=== PATIENT | female | born 1985 | race Two or more races ===

== ENCOUNTER 2021-05-20 13:28 | Outpatient (REF) | payer OTHER, SELFPAY | END 2021-05-20 13:29 | disposition home or self-care (01) | LOC: HO.LAB 13:28 | PROVIDERS: Visit Provider Internal Medicine | DX: Z20.822 Contact with and (suspected) exposure to COVID-19 (principal) | CPT/HCPCS: C9803; U0003; U0005 ==

== ENCOUNTER 2021-05-31 14:10 | Outpatient (REF) | payer OTHER, SELFPAY | END 2021-05-31 14:11 | disposition home or self-care (01) | LOC: HO.LAB 14:10 | PROVIDERS: Visit Provider Internal Medicine | DX: Z20.822 Contact with and (suspected) exposure to COVID-19 (principal) | CPT/HCPCS: C9803; U0003; U0005 ==

== ENCOUNTER 2021-08-25 09:34 | Emergency (ER) | payer OTHER, SELFPAY ==
--- NOTE | ~2021-08-25 | CT_ITS ---
EXAMINATION: CT HEAD WITHOUT CONTRAST CLINICAL INFORMATION: Left-sided paresthesia for one month. COMPARISON: None. TECHNIQUE: Contiguous axial imaging was performed from the skull base to vertex without intravenous contrast. This CT examination was performed using dose optimization techniques as appropriate, variously including the following: * Automated exposure control * Adjustment of mA and/or kV according to patient size (this includes techniques or standardized protocols for targeted exams where dose is matched to indication/reason for exam; i.e. extremities or head) Use of iterative reconstruction technique DLP: 682 mGy-cm. FINDINGS: There is no evidence of acute intracranial hemorrhage or territorial infarction. No abnormal mass effect or midline shift is seen. Boswell to white matter differentiation is well preserved. No extra-axial fluid collections are identified. No hydrocephalus. No significant volume loss. There is no abnormal attenuation within the brain parenchyma. The osseous structures and soft tissues are normal. The mastoid air cells and visualized portions of the paranasal sinuses are well aerated. CT/CT head/brain wo con IMPRESSION: No acute intracranial pathology.
--- NOTE | ~2021-08-25 | CT_ITS ---
EXAMINATION: CT ABDOMEN AND PELVIS WITHOUT CONTRAST CLINICAL INFORMATION: Left lower quadrant pain. COMPARISON: None TECHNIQUE: Multidetector volumetric imaging was performed from the superior aspect of the liver through the pubic symphysis. Sagittal and coronal reformatted images were obtained on the technologist's workstation. This CT examination was performed using dose optimization techniques as appropriate, variously including the following: *Automated exposure control *Adjustment of mA and/or kV according to patient size (this includes techniques or standardized protocols for targeted exams where dose is matched to indication/reason for exam; i.e. extremities or head) *Use of iterative reconstruction technique DLP: 555 mGy-cm FINDINGS: LUNG BASES: The visualized lung bases are unremarkable. LIVER, GALLBLADDER, AND BILIARY TREE: The liver is normal in size, shape, and attenuation. No focal hepatic lesion or biliary ductal dilatation is present. Along the anterior aspect of the left lobe of the liver there is a cystic structure measuring 2.9 x 1 cm. This appears to be external to the liver and results in deformity of the Contour. The gallbladder is unremarkable with no evidence of radiopaque gallstones, gallbladder wall thickening, or obvious pericholecystic inflammatory changes. PANCREAS: Unremarkable. SPLEEN: Unremarkable. ADRENAL GLANDS: Unremarkable. KIDNEYS AND URETERS: The kidneys are normal in size, shape, and attenuation. No hydronephrosis or hydroureter. 0.2 cm right lower pole renal calculus noted which is 7 cm from the posterior axillary line. BLADDER: Unremarkable. GASTROINTESTINAL TRACT: The stomach is unremarkable. Normal caliber small bowel. No obstruction. No colonic wall thickening or inflammatory change. No free air or free fluid. Normal appendix. ABDOMINAL WALL: No significant hernia is appreciated. LYMPH NODES: Normal. VASCULAR: Unremarkable. PELVIC VISCERA: Retroverted uterus. No adnexal mass. OSSEOUS STRUCTURES: No acute or suspicious osseous abnormality. CT/CT abdomen pelvis wo con IMPRESSION: No acute findings in the abdomen or pelvis. No inflammatory change. Nonspecific cystic structure exophytic to the anterior aspect of the left lobe of the liver. This is of uncertain clinical significance. Nonobstructing right lower pole tiny renal calculus. Fleischner guidelines were followed.
[2021-08-25 10:38] VITALS: BP 116/88; PULSE 84; RESP 16; TEMP 36.3; O2SAT 100; BMI 29.5
[2021-08-25 12:28] LABS: MANUAL DIFF FLAG NO
[2021-08-25 12:30] LABS: Basophils Absolute Auto 0.1 X10*3/uL (0.0-0.2); Basophils Percent Auto 0.7 % (0-2); Eosinophils Absolute Auto 0.1 X10*3/uL (0.0-0.4); Eosinophils Percent Auto 1.1 % (0-4); Hematocrit 42.7 % (37.0-47.0); Hemoglobin 14.5 g/dl (12.0-16.0); Imm Gran Abs Auto 0.04 X10*3/uL (0.00-0.03); Imm Gran Pct Auto 0.4 % (0.0-0.4); Lymphocytes Absolute Auto 2.6 X10*3/uL (1.2-4.9); Lymphocytes Percent Auto 25.8 % (20-40); Mean Corpuscular Hemoglobin 34.2 pg (27.0-33.0); Mean Corpuscular Volume 100.7 fL (80.0-98.0); Mean Platelet Volume 8.2 fL (9.4-12.3); Monocytes Absolute Auto 0.7 X10*3/uL (0.1-1.2); Monocytes Percent Auto 6.9 % (2-11); Neutrophils Absolute Auto 6.6 x10*3/uL (2.0-8.3); Neutrophils Percent Auto 65.1 % (45-73); Platelet Count 275 X10*3/uL (160-400); Red Blood Count 4.24 X10*6/uL (4.20-5.50); Red Cell Distribution Width 12.2 % (11.0-16.0); White Blood Count 10.1 X10*3/uL (4.8-10.8)
[2021-08-25 12:33] LABS: UPreg QC Valid YES; Urine Pregnancy NEGATIVE (NEGATIVE)
[2021-08-25 12:38] LABS: Appearance Urine HAZY; Color Urine YELLOW; Glucose Urine UA NEG (NEG); Leukocyte Esterase Urine NEG (NEG); Nitrite Urine NEG (NEG); Urine Blood NEG (NEG); Urine Ketones NEG (NEG); Urine Protein NEG (NEG-TRACE)
[2021-08-25 12:47] LABS: Anion Gap 13 (12-20); Blood Urea Nitrogen 14 mg/dL (9-16); Calcium 9.1 mg/dL (8.4-10.2); Carbon Dioxide 28 mmol/L (22-29); Chloride 105 mmol/L (96-108); Creatinine Clr Calc Pharmacy 93.2; Estimated Glomerular Filt Rate > 60; Glucose Random 82 mg/dL (60-115); Potassium 3.4 mmol/L (3.3-5.1); Sodium 143 mmol/L (135-145)
--- NOTE | 2021-08-25 13:01 | ED.ABDPAIN ---
HPI - Abdominal Pain General Chief Complaint: Abdominal Pain Stated Complaint: Numbness & tingling in legs/l arm Time Seen by Provider: 08/25/21 13:00 Source: patient Mode of arrival: ambulatory Limitations: no limitations History of Present Illness MD elicited complaint: abdominal pain and other (parasthesias L side 1 month now to LLE and RLE) Pertinent past history: none Onset (ago): month(s) (1) Pain Consistency: constant Location: LLQ and other (tingling from L side) Severity: moderate Quality: aching Radiation: none Migration to: no migration Exacerbating factors: nothing Relieving factors: nothing Associated symptoms: nausea Related Data Allergies Allergy/AdvReac Type Severity Reaction Status Date / Time No Known Allergies Allergy Verified 08/25/21 10:37 Review of Systems Review of Systems Constitutional : No Weight loss, No Fever, No Chills ENT/Mouth : No sore throat, No Rhinorrhea Eyes: No Swelling, No Redness Cardiovascular : No Chest Pain, No SOB, NoEdema Respiratory : No Cough, No Sputum, No Wheezing Gastrointestinal : Positive Nausea, no Vomiting, no Diarrhea, positive abdominal Pain, No Hematochezia, No Melena Genitourinary : No Dysuria, No Urinary Frequency, No Hematuria, No Urgency Musculoskeletal : No joint pain, No Myalgias, No Joint Swelling Skin : No Skin Lesions, No rash Neuro : No Weakness, pos Numbness, No Dizziness, No Headache Psych : No Anxiety/Panic, No Depression Heme/Lymph: No Bruising, No Lymphadenopathy Endocrine : No Polyuria, No Polydipsia All other systems reviewed and are negative. Physical Exam Vital Signs: Vital Signs: Last Vital Signs Temp 97.3 F 08/25/21 10:38 Pulse 84 08/25/21 10:38 Resp 16 08/25/21 10:38 BP 116/88 08/25/21 10:38 Pulse Ox 100 08/25/21 10:38 BMI result Body Mass Index 29.5 Appearance: Alert. Oriented X3. No acute distress. Eyes: Pupils equal, round and reactive to light. ENT: Pharynx normal. Neck: Normal inspection. Neck supple. CVS: Normal heart rate and rhythm. Pulses normal. Respiratory: No respiratory distress. Breath sounds normal. Abdomen: Soft and mild LLQ ttp no rebound or guarding Skin: Skin warm and dry. Normal skin color. Normal skin turgor. Extremities: No lower extremity edema. No calf ttp Neuro: Oriented X 3. No motor deficit. No sensory deficit. reports L side feels tingly but she can feel it Course Course Course Narrative: no acute findings, parasthesias x 1 month doubt GBS possible MS though non specific will have her follow up with her PCP/Neurology MDM - Abdominal Pain MDM Narrative Medical decision making narrative: 35 yo female with no sig PMH hx here with c/o L sided parasthesias for 1 month along with it has now traveled to her legs no fam hx of MS - she also notes LLQ pain and nausea since last night - labs, UA, CT scan for diverticulitis, CT head for any lesions - dispo per results and findings. Lab Data Result diagrams: 08/25/21 12:21 08/25/21 12:21 Labs: Lab Results 08/25/21 08/25/21 08/25/21 Range/Units 12:21 12:21 12:21 WBC 10.1 (4.8-10.8) X10*3/uL RBC 4.24 (4.20-5.50) X10*6/uL Hgb 14.5 (12.0-16.0) g/dl Hct 42.7 (37.0-47.0) % MCV 100.7 H (80.0-98.0) fL MCH 34.2 H (27.0-33.0) pg MCHC 34.0 (31.0-35.0) g/dl RDW 12.2 (11.0-16.0) % Plt Count 275 (160-400) X10*3/uL MPV 8.2 L (9.4-12.3) fL Immature Gran % (Auto) 0.4 (0.0-0.4) % Neut % (Auto) 65.1 (45-73) % Lymph % (Auto) 25.8 (20-40) % [place] % (Auto) 6.9 (2-11) % Eos % (Auto) 1.1 (0-4) % Baso % (Auto) 0.7 (0-2) % Lymph # (Auto) 2.6 (1.2-4.9) X10*3/uL [place] # (Auto) 0.7 (0.1-1.2) X10*3/uL Eos # (Auto) 0.1 (0.0-0.4) X10*3/uL Baso # (Auto) 0.1 (0.0-0.2) X10*3/uL Abs Immat Gran (auto) 0.04 H (0.00-0.03) X10*3/uL Absolute Neuts (auto) 6.6 (2.0-8.3) x10*3/uL Absolute Nucleated RBC 0.000 (0.0-0.012) X10*3/uL Nucleated RBC % (auto) 0.0 (0.0-0.2) /100WBC Sodium 143 (135-145) mmol/L Potassium 3.4 (3.3-5.1) mmol/L Chloride 105 (96-108) mmol/L Carbon Dioxide 28 (22-29) mmol/L Anion Gap 13 (12-20) BUN 14 (9-16) mg/dL Creatinine 0.69 (0.5-1.4) mg/dL Estim Creat Clear Calc 93.2 Estimated GFR > 60 Random Glucose 82 (60-115) mg/dL Calcium 9.1 (8.4-10.2) mg/dL Total Bilirubin 1.0 (0.0-1.0) mg/dL Direct Bilirubin 0.5 (0.0-0.5) mg/dL AST 20 (5-31) U/L ALT 20 (0-31) U/L Alkaline Phosphatase 56 (39-117) U/L Total Protein 6.8 (6.5-8.0) g/dL Albumin 4.3 (3.5-5.0) g/dL Lipase 74 (8-78) U/L Urine Color YELLOW Urine Appearance HAZY Urine pH 6.0 (5.0-8.0) Ur Specific [place] 1.020 (1.005-1.025) Urine Protein NEG (NEG-TRACE) MG/DL Urine Glucose (UA) NEG (NEG) MG/DL Urine Ketones NEG (NEG) MG/DL Urine Blood NEG (NEG) Urine Nitrite NEG (NEG) Ur Leukocyte Esterase NEG (NEG) Urine Test (NEGATIVE) 08/25/21 Range/Units 12:21 WBC (4.8-10.8) X10*3/uL RBC (4.20-5.50) X10*6/uL Hgb (12.0-16.0) g/dl Hct (37.0-47.0) % MCV (80.0-98.0) fL MCH (27.0-33.0) pg MCHC (31.0-35.0) g/dl RDW (11.0-16.0) % Plt Count (160-400) X10*3/uL MPV (9.4-12.3) fL Immature Gran % (Auto) (0.0-0.4) % Neut % (Auto) (45-73) % Lymph % (Auto) (20-40) % [place] % (Auto) (2-11) % Eos % (Auto) (0-4) % Baso % (Auto) (0-2) % Lymph # (Auto) (1.2-4.9) X10*3/uL [place] # (Auto) (0.1-1.2) X10*3/uL Eos # (Auto) (0.0-0.4) X10*3/uL Baso # (Auto) (0.0-0.2) X10*3/uL Abs Immat Gran (auto) (0.00-0.03) X10*3/uL Absolute Neuts (auto) (2.0-8.3) x10*3/uL Absolute Nucleated RBC (0.0-0.012) X10*3/uL Nucleated RBC % (auto) (0.0-0.2) /100WBC Sodium (135-145) mmol/L Potassium (3.3-5.1) mmol/L Chloride (96-108) mmol/L Carbon Dioxide (22-29) mmol/L Anion Gap (12-20) BUN (9-16) mg/dL Creatinine (0.5-1.4) mg/dL Estim Creat Clear Calc Estimated GFR Random Glucose (60-115) mg/dL Calcium (8.4-10.2) mg/dL Total Bilirubin (0.0-1.0) mg/dL Direct Bilirubin (0.0-0.5) mg/dL AST (5-31) U/L ALT (0-31) U/L Alkaline Phosphatase (39-117) U/L Total Protein (6.5-8.0) g/dL Albumin (3.5-5.0) g/dL Lipase (8-78) U/L Urine Color Urine Appearance Urine pH (5.0-8.0) Ur Specific [place] (1.005-1.025) Urine Protein (NEG-TRACE) MG/DL Urine Glucose (UA) (NEG) MG/DL Urine Ketones (NEG) MG/DL Urine Blood (NEG) Urine Nitrite (NEG) Ur Leukocyte Esterase (NEG) Urine Test NEGATIVE (NEGATIVE) Discharge Plan Discharge Clinical Impression: Paresthesia, Abdominal pain Patient Disposition: Home, Self-Care Instructions: Paresthesia (ED), Abdominal Pain (ED) Additional Instructions: return to ED for any worsening symptoms or concerns you need to see your primary care doctor - you will need MRI of your liver as well as your brain to rule out MS your B12 may be low please follow up and start taking supplements over the counter No acute findings in the abdomen or pelvis. No inflammatory change. ? Nonspecific cystic structure exophytic to the anterior aspect of the left lobe of the liver. This is of uncertain clinical significance. ? Nonobstructing right lower pole tiny renal calculus.? Referrals: Physician,Unknown J [Primary Care Provider] - 2 days Stand Alone Forms: Work/School Release [facility] Past Medical History Medical History No known health problems Social History Social History (Updated 08/25/21 @ 13:10 by Marli Grimaldo DO) Alcohol intake: current Patient Tobacco Use Status: Current everyday Tobacco user Advance Directives: No Advance Directives Information Provided: No
[2021-08-25 13:22] LABS: Alanine Aminotransferase 20 U/L (0-31); Albumin Level 4.3 g/dL (3.5-5.0); Alkaline Phosphatase 56 U/L (39-117); Aspartate Amino Transferase 20 U/L (5-31); Bilirubin Direct 0.5 mg/dL (0.0-0.5); Lipase 74 U/L (8-78); Total Protein 6.8 g/dL (6.5-8.0)
== END 2021-08-25 14:38 | disposition home or self-care (01) ==
PROVIDERS: Emergency Provider Emergency Medicine
DX: R10.9 Unspecified abdominal pain (principal); R20.2 Paresthesia of skin
CPT/HCPCS: 36415; 70450; 74176; 80048; 80076; 81003; 81025; 83690; 85025; 99283; 99284

== ENCOUNTER 2022-02-17 17:38 | Emergency (ER) | payer OTHER, SELFPAY ==
[2022-02-17 17:52] VITALS: BP 149/71; PULSE 77; RESP 18; TEMP 37; O2SAT 98; BMI 28.3
--- NOTE | 2022-02-17 17:55 | ECG_ITS ---
Test Reason : bilateral arm numbness Blood Pressure : / mmHG Vent. Rate : 075 BPM Atrial Rate : 075 BPM P-R Int : 122 ms QRS Dur : 122 ms QT Int : 404 ms P-R-T Axes : 062 028 020 degrees QTc Int : 451 ms Sinus rhythm with frequent Premature ventricular complexes Right bundle branch block Abnormal ECG No previous ECGs available Referred By: Generic ED Physician Electronically Signed By:NICK MORALES MD
[2022-02-17 18:25] LABS: Hemoglobin 12.4 g/dl (12.0-16.0); Mean Corpuscular HGB Conc 34.4 g/dl (31.0-35.0); Mean Corpuscular Hemoglobin 33.4 pg (27.0-33.0); Mean Platelet Volume 8.4 fL (9.4-12.3); Platelet Count 244 X10*3/uL (160-400); Red Blood Count 3.71 X10*6/uL (4.20-5.50); Red Cell Distribution Width 12.3 % (11.0-16.0)
[2022-02-17 18:45] LABS: Anion Gap 12 (12-20); Blood Urea Nitrogen 9 mg/dL (9-16); Calcium 8.8 mg/dL (8.4-10.2); Carbon Dioxide 23 mmol/L (22-29); Chloride 109 mmol/L (96-108); Creatinine Clr Calc Pharmacy 83.1; Estimated Glomerular Filt Rate > 60; Glucose Random 124 mg/dL (60-115); Potassium 3.4 mmol/L (3.3-5.1); Sodium 141 mmol/L (135-145)
--- NOTE | 2022-02-17 20:51 | PC.NURSE ---
Pt complains of right sided numbness and tingling on her right side arm/leg. Pt had ECG done and blood work. Awaiting provider no other needs at his time.
[2022-02-17 22:00] VITALS: BP 115/78; PULSE 69; RESP 15; TEMP 36.6; O2SAT 98
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
--- NOTE | 2022-02-17 22:09 | PC.NURSE ---
pt alert and verbal c/o bilat upper and lower numbness/tingling onset yesterday. states she has had these sx before but was unable to sleep last night. 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 pt c/o SOB at rest, denies headache, or loss of bowel/bladder. pt ambulatory to from [facility] to ER c/o some weakness but demonstrated steady gait.
--- NOTE | 2022-02-17 23:49 | PC.NURSE ---
pt intially refused 1mg ativan stating that she was sensitive to medications and she didnt want it to put her to sleep. pt was offered a smaller dose and was agreeable. prior to admin pt refused ativan. pt ready for discharge and asking for ativan to go home with. MD Winn gave this RN permission to send pt home with 0.5mg PO ativan to take at home since pt was worried about driving and getting home safely
[2022-02-17 23:51] LABS: Magnesium 1.8 mg/dL (1.6-2.6)
[2022-02-17] MEDS: LORazepam 0.5 MG TABLET PO (23:54)
== END 2022-02-17 23:54 | disposition home or self-care (01) ==
PROVIDERS: Emergency Provider Emergency Medicine
DX: F41.9 Anxiety disorder, unspecified (principal); R20.2 Paresthesia of skin; R06.02 Shortness of breath
CPT/HCPCS: 36415; 80048; 83735; 85027; 93005; 99283; 99284

== ENCOUNTER 2024-05-18 07:23 | Emergency (ER) | payer OTHER, SELFPAY ==
[2024-05-18 07:34] VITALS: BP 141/100; PULSE 94; RESP 16; TEMP 37.1; O2SAT 98; BMI 29.5
--- NOTE | 2024-05-18 07:53 | ED.GENADULT ---
HPI - General Adult General Chief complaint: General Medical Stated complaint: cyst in head all over body Time Seen by Provider: 05/18/24 07:36 Source: patient Mode of arrival: ambulatory Limitations: no limitations History of Present Illness HPI narrative: This is a 38 years old patient presented to emergency department complaining of anxiety, tremors, she thinks that she has cysts in the legs in the head. She is also complaining of dizziness. Patient has history of alcohol abuse but she has not drink for a week, she has history of anxiety as well Onset (ago): day(s) (2) Radiation: non-radiation Severity: mild Quality: burning Pain Consistency: constant Relieving factors: none Related Data Previous Rx's ?Medication ?Instructions ?Recorded lorazepam 0.5 mg tablet 0.5 mg PO TID PRN anxiety #20 tabs 02/17/22 Allergies Allergy/AdvReac Type Severity Reaction Status Date / Time Penicillins Allergy Unknown Verified 05/18/24 07:36 Review of Systems Constitutional: Constitutional: Reports no additional constitutional complaints ENT: Reports system reviewed and no additional complaints, except as documented Cardiovascular: Cardiovascular: Reports no additional cardiovascular complaints [facility] Past Medical History [facility] Narrative: Alcohol abuse, anxiety Medical History No known health problems Social History Social History Alcohol intake: current Patient Tobacco Use Status: Current everyday Tobacco user Advance Directives: No Advance Directives Information Provided: No Physical Exam ED Vital Signs: Vital Signs - 24 hr 05/18/24 07:34 Temperature 98.7 F Pulse Rate 94 Respiratory Rate 16 Blood Pressure 141/100 H Pulse Oximetry 98 Oxygen Delivery Method Room Air BMI result Body Mass Index 29.5 Const General: cooperative, comfortable and no acute distress Nutritional Appearance: average body habitus Orientation/consciousness: patient oriented x3 Limitations: no limitations HENMT Head: Yes normal to inspection General nose exam: Normal external nose present Face and sinus: Yes normal facial exam Mouth: Normal oral and palatal mucosa present Throat: Yes posterior oropharynx normal Neck Neck: Yes normal visual inspection Chest Chest palpation & inspection: normal inspection of the chest Resp Effort & Inspection: normal respiratory effort Auscultation: clear to auscultation bilaterally GI Inspection: Yes normal to inspection Skin General skin exam: no rashes or lesions noted and elasticity normal Lesions: no lesions Rashes: no rashes Neuro General: patient oriented x3 Cranial nerves: Yes CN's II-XII intact bilaterally Course Reevaluation(s) Reevaluation #1: Labs resulted she has elevated LFT potassium is low, patient has history of alcohol abuse. She was told to follow-up on Monday with the primary care physician she was made aware that the liver tests were elevated. But she is afebrile she is not toxic she is not tachycardic I think she can be d/c home and follow up as outpatient, she is comfortable with the plan of care Time: 09:53 Medical Decision Making Medical Decision Making MDM Narrative: Patient presented with multiple complaints including dizziness, ?cysts in the head the legs close quotation she appear very anxious Differential Diagnosis Differential Diagnoses: The differential diagnosis associated with the presentation includes Anxiety disorder/alcohol withdrawal/electrolytes abnormality Admission/Observation Consideration of admission/observation: Escalation of care including admission/observation considered Lab Data [facility] Lab Attestation statement: I reviewed the patient's lab results. 05/18/24 08:05 05/18/24 08:05 Labs: Lab Results 05/18/24 Range/Units 08:05 WBC 6.5 (4.8-10.8) X10*3/uL RBC 4.38 (4.20-5.50) X10*6/uL Hgb 15.6 D (12.0-16.0) g/dl Hct 44.4 D (37.0-47.0) % MCV 101.4 H (80.0-98.0) fL MCH 35.6 H (27.0-33.0) pg MCHC 35.1 H (31.0-35.0) g/dl RDW 11.8 (11.0-16.0) % Plt Count TNP MPV TNP Immature Gran % (Auto) 0.3 (0.0-0.4) % Neut % (Auto) 63.7 (45-73) % Lymph % (Auto) 23.2 (20-40) % [place] % (Auto) 10.0 (2-11) % Eos % (Auto) 2.0 (0-4) % Baso % (Auto) 0.8 (0-2) % Lymph # (Auto) 1.5 (1.2-4.9) X10*3/uL [place] # (Auto) 0.7 (0.1-1.2) X10*3/uL Eos # (Auto) 0.1 (0.0-0.4) X10*3/uL Baso # (Auto) 0.1 (0.0-0.2) X10*3/uL Abs Immat Gran (auto) 0.02 (0.00-0.03) X10*3/uL Absolute Neuts (auto) 4.2 (2.0-8.3) x10*3/uL Absolute Nucleated RBC 0.000 (0.0-0.012) X10*3/uL Nucleated RBC % (auto) 0.0 (0.0-0.2) /100WBC Sodium 140 (135-145) mmol/L Potassium 3.2 L (3.3-5.1) mmol/L Chloride 99 (96-108) mmol/L Carbon Dioxide 21 L (22-29) mmol/L Anion Gap 23 H (12-20) BUN 13 (9-16) mg/dL Creatinine 0.75 (0.5-1.4) mg/dL Estim Creat Clear Calc 83.3 Estimated GFR > 60 Random Glucose 68 (60-115) mg/dL Calcium 9.3 (8.4-10.2) mg/dL Total Bilirubin 3.4 H (0.0-1.0) mg/dL AST 218 H (5-31) U/L ALT 117 H (0-31) U/L Alkaline Phosphatase 79 (39-117) U/L Total Protein 8.1 H (6.5-8.0) g/dL Albumin 4.6 (3.5-5.0) g/dL Urine Color Dark Yellow Urine Appearance Cloudy Urine pH 6.5 (5.0-9.0) Ur Specific [place] 1.025 (1.005-1.025) Urine Protein 30 (1+) H (Neg-Trace) mg/dL Urine Glucose (UA) Negative (Negative) mg/dL Urine Ketones >=160 (Negative) mg/dL Urine Blood Negative (Negative) Urine Nitrite Positive H (Negative) Ur Leukocyte Esterase Moderate (2+) H (Negative) Urine RBC 0-2 (0-2) /HPF Urine WBC 21-50 H (0-5) /HPF Ur Squamous Epith Cells 11-20 (0-2) /HPF Urine Bacteria 2+ (None Seen) Hyaline Casts 0-2 (0-2) /LPF Urine Test NEGATIVE (NEGATIVE) Urine Opiates Screen Not Detected (Not Detect) Ur Buprenorphine Scrn Not Detected (Not Detect) ng/mL Ur Oxycodone Screen Not Detected (Not Detect) ng/mL Urine Methadone Screen Not Detected (Not Detect) ng/mL Urine Fentanyl Screen Not Detected (Not Detect) Ur Barbiturates Screen Not Detected (Not Detect) Ur Phencyclidine Scrn Not Detected (Not Detect) Ur Amphetamines Screen Not Detected (Not Detect) U Benzodiazepines Scrn Not Detected (Not Detect) Urine Cocaine Screen Not Detected (Not Detect) U Marijuana (THC) Screen Not Detected (Not Detect) Discharge Plan Discharge Clinical Impression: Hypokalemia, Elevated LFTs Patient Disposition: Home, Self-Care Instructions: Hypokalemia (ED) Additional Instructions: Follow-up with your primary care physician on Monday, your liver tests were elevated that will need to be rechecked as outpatient, make sure you do not drink any alcohol do not take any Tylenol. Return to emergency room if you worse. Prescriptions: No Action lorazepam 0.5 mg tablet 0.5 mg PO TID PRN (Reason: anxiety) Qty: 20 0RF Referrals: Physician,Unknown J [Primary Care Provider] - 05/21/24 Print Language: Eritrean
[2024-05-18 08:12] LABS: MANUAL DIFF FLAG NO
[2024-05-18 08:16] LABS: Appearance Urine Cloudy; Basophils Absolute Auto 0.1 X10*3/uL (0.0-0.2); Basophils Percent Auto 0.8 % (0-2); Color Urine Dark Yellow; Eosinophils Absolute Auto 0.1 X10*3/uL (0.0-0.4); Glucose Urine UA Negative (Negative); Hematocrit 44.4 % (37.0-47.0); Imm Gran Abs Auto 0.02 X10*3/uL (0.00-0.03); Imm Gran Pct Auto 0.3 % (0.0-0.4); Leukocyte Esterase Urine Moderate (2+) (Negative); Lymphocytes Absolute Auto 1.5 X10*3/uL (1.2-4.9); Lymphocytes Percent Auto 23.2 % (20-40); Mean Corpuscular HGB Conc 35.1 g/dl (31.0-35.0); Mean Corpuscular Hemoglobin 35.6 pg (27.0-33.0); Mean Corpuscular Volume 101.4 fL (80.0-98.0); Monocytes Absolute Auto 0.7 X10*3/uL (0.1-1.2); Neutrophils Absolute Auto 4.2 x10*3/uL (2.0-8.3); Neutrophils Percent Auto 63.7 % (45-73); Nitrite Urine Positive (Negative); PH 6.5 (5.0-9.0); Red Blood Count 4.38 X10*6/uL (4.20-5.50); Red Cell Distribution Width 11.8 % (11.0-16.0); Specific Gravity - Urine 1.025 (1.005-1.025); UMIC TRIGGER UACC YES; Urine Blood Negative (Negative); Urine Ketones >=160 mg/dL (Negative); Urine Protein 30 (1+) mg/dL (Neg-Trace); White Blood Count 6.5 X10*3/uL (4.8-10.8)
[2024-05-18 08:21] LABS: Bacteria Urine 2+ (None Seen); Hyaline Casts Urine 0-2 /LPF (0-2); RBC Urine 0-2 /HPF (0-2); UACC Culture Trigger YES; WBC Urine 21-50 /HPF (0-5)
[2024-05-18 08:24] LABS: Amphetamine Screen Urine Not Detected (Not Detect); Barbiturates, Urine Not Detected (Not Detect); Benzodiazepines Screen Urine Not Detected (Not Detect); Buprenorphine Scr Not Detected (Not Detect); Cannabinoid Screen Urine Not Detected (Not Detect); Cocaine Screen Urine Not Detected (Not Detect); Fentanyl, urine Not Detected (Not Detect); Methadone Screen, Urine Not Detected (Not Detect); Opiate Screen Urine Not Detected (Not Detect); Oxycodone Screen Urine Not Detected (Not Detect); Phencyclidine Screen Urine Not Detected (Not Detect)
[2024-05-18 08:32] LABS: UPreg QC Valid YES; Urine Pregnancy NEGATIVE (NEGATIVE)
[2024-05-18 08:37] LABS: Hemoglobin 15.6 g/dl (12.0-16.0)
[2024-05-18 08:43] LABS: Alanine Aminotransferase 117 U/L (0-31); Albumin Level 4.6 g/dL (3.5-5.0); Alkaline Phosphatase 79 U/L (39-117); Anion Gap 23 (12-20); Aspartate Amino Transferase 218 U/L (5-31); Bilirubin Total 3.4 mg/dL (0.0-1.0); Blood Urea Nitrogen 13 mg/dL (9-16); Calcium 9.3 mg/dL (8.4-10.2); Carbon Dioxide 21 mmol/L (22-29); Chloride 99 mmol/L (96-108); Creatinine Clr Calc Pharmacy 83.3; Estimated Glomerular Filt Rate > 60; Glucose Random 68 mg/dL (60-115); Potassium 3.2 mmol/L (3.3-5.1); Sodium 140 mmol/L (135-145); Total Protein 8.1 g/dL (6.5-8.0)
[2024-05-18] MEDS: Potassium Chloride ER 20 MEQ TAB.ER.PRT 40 MEQ PO (09:56)
[2024-05-18 10:00] VITALS: BP 142/87; PULSE 90; RESP 16; TEMP 36.8; O2SAT 98
== END 2024-05-18 10:01 | disposition home or self-care (01) ==
PROVIDERS: Emergency Provider Emergency Medicine
DX: E87.6 Hypokalemia (principal); R79.89 Other specified abnormal findings of blood chemistry; F10.10 Alcohol abuse, uncomplicated; Y90.9 Presence of alcohol in blood, level not specified; F17.200 Nicotine dependence, unspecified, uncomplicated
CPT/HCPCS: 36415; 80053; 80307; 81001; 81025; 85025; 87086; 87088; 87186; 99282; 99283; 99284

== ENCOUNTER 2024-05-20 14:00 | Emergency (ER) | payer OTHER, SELFPAY ==
--- NOTE | ~2024-05-20 | XR_ITS ---
EXAMINATION: Right index finger CLINICAL INFORMATION: Dog bite to the index finger COMPARISON: None available. TECHNIQUE: Frontal view of the hand. 2 coned-down views of the index finger FINDINGS: The bones and soft tissues are normal. No fracture. Alignment is anatomic. Joint spaces are maintained. XR/XR finger RT min 2V IMPRESSION: Normal finger radiographs. Electronically signed by: Salazar Dennison MD 05/21/2024 04:43 PM EDT
--- NOTE | 2024-05-20 14:08 | ED_ITS ---
HPI - General Adult General Chief complaint: Psychiatric Symptoms Stated complaint: DOG BITE R HAND,SEC 12:A&V HALLUCINATIONS PER EMS Time Seen by Provider: 05/20/24 14:08 History of Present Illness ED Provider: Rhonda CHAUDHARY narrative: The patient is a 38-year-old female. Apparently she has a history of alcoholism. She was seen here 2 days ago complaining of cysts on her legs and on her head. She apparently also complained of feeling dizzy balance. She had labs done that showed abnormal LFTs including a total bilirubin of 3.4, AST of 218, and an ALT of 117. Her blood pressures were mildly high but otherwise her vital signs were stable. She was judged to be outpatient management and was discharged to follow up with her PCP tomorrow. Today the patient was brought to the hospital by ambulance. Apparently her dogs has been fighting and the patient has sustained an injury to her index finger from a dog bite. She says that she has been a large dog (a pimple) from a smaller dog. It was the larger dog that bit her. She says that the large dog is up-to-date on rabies vaccinations. The dog has been taken by animal control. Apparently the small dog was significantly injured and was taken to an animal hospital. Apparently there has been a lot of 911 calls to the patient's home in the last week or so. She has been observed to have bizarre behaviors and there is concerned that she is responding to internal stimuli and having audio and visual hallucinations. Therefore she was brought to the hospital under a section 12. Related Data Home Medications ?Medication ?Instructions ?Recorded ?Confirmed omeprazole 20 mg capsule,delayed 20 mg PO DAILY@0630 05/20/24 05/20/24 release Allergies Allergy/AdvReac Type Severity Reaction Status Date / Time Penicillins Allergy Unknown Verified 05/20/24 14:34 Review of Systems 2 Review of Systems: Yes all other systems are reviewed and are negative PMFSH Past Medical History Medical History No known health problems Social History Social History Alcohol intake: former Patient Tobacco Use Status: Current everyday Tobacco user Smoked in Last 30 Days: Yes Use of substances other than those prescribed or required for medical reasons: No Advance Directives: No Advance Directives Information Provided: Yes Physical Exam ED Vital Signs: Vital Signs - 24 hr 05/20/24 14:32 Temperature 97 F Pulse Rate 109 H Respiratory Rate 16 Blood Pressure 119/73 Pulse Oximetry 97 Oxygen Delivery Method Room Air BMI result Body Mass Index 22.9 Const Other: The patient is awake and alert. She has a somewhat intense affect but does not seem in distress. She was initially calm and cooperative. HENMT Other: Face is symmetrical. Mucous membranes moist. Eyes Other: Pupils are round equal, conjunctivae are clear Neck Other: No masses. Moving her neck easily. Resp Effort & Inspection: normal respiratory effort Auscultation: clear to auscultation bilaterally Cardio Rate: regular rate Rhythm: regular rhythm Heart sounds: S1 normal heart sound present and S2 normal heart sound present GI Other: Abdomen is soft and nontender Skin Other: The patient has some injuries to the skin of the right index finger. These are small partial-thickness injuries which do not require suturing. Neuro Other: The patient is awake and alert. Initially the patient seemed quite coherent. Cranial nerves were intact. She moves her extremities normally. She had an no lateralizing findings or any focal neurological findings. However as time went on it became apparent that she seemed to be having some kind of a thought disorder. She was exhibiting signs of paranoia that her children were being hidden from her and that other people were talking to her children. Extrem Other: The patient has some partial-thickness skin injuries to the skin of the right index finger. The finger is not significantly swollen. She is able to move all the joints of the finger normally. There is no deformity. I do not have any suspicion for a fracture Psych Other: The patient was initially calm and cooperative but over time it was apparent that she seemed to be exhibiting signs of a thought disorder. She seemed to be under the impression that her children were being held under her bed or were elsewhere in the emergency department talking to other people. Medications Administered Discontinued Medications Generic Name Dose Route Start Last Admin Trade Name Freq PRN Reason Stop Dose Admin Cefuroxime Axetil 500 mg 05/20/24 16:07 05/20/24 16:21 Cefuroxime Axetil 500 Mg Tablet PO 05/20/24 16:08 500 mg ONCE ONE Administration Doxycycline Monohydrate 100 mg 05/20/24 14:51 05/20/24 14:59 Doxycycline Monohydrate 100 Mg Capsule PO 05/20/24 14:52 100 mg ONCE ONE Administration Folic Acid 1 mg 05/20/24 15:30 05/20/24 16:21 Folic Acid 1 Mg Tablet PO 05/20/24 15:31 1 mg ONCE ONE Administration Metronidazole 500 mg 05/20/24 14:51 05/20/24 14:59 Metronidazole 500 Mg Tablet PO 05/20/24 14:52 500 mg ONCE ONE Administration Metronidazole 500 mg 05/20/24 21:01 05/20/24 21:31 Metronidazole 500 Mg Tablet PO 05/20/24 21:02 500 mg ONCE ONE Administration Midazolam HCl 5 mg 05/20/24 17:58 05/20/24 19:02 Midazolam Hcl/Pf 2 Mg/2 Ml Vial IM 05/20/24 17:59 Not Given ONCE ONE Olanzapine 10 mg 05/20/24 17:31 05/20/24 17:36 Olanzapine Odt 10 Mg Tab.Rapdis TRANSLINGU 05/20/24 17:32 10 mg ONCE ONE Administration Olanzapine 10 mg 05/20/24 17:58 05/20/24 19:02 Olanzapine 10 Mg Vial IM 05/20/24 17:59 Not Given ONCE ONE Thiamine HCl 100 mg 05/20/24 15:30 05/20/24 16:21 Thiamine Hcl 100 Mg Tablet PO 05/20/24 15:31 100 mg ONCE ONE Administration Medical Decision Making Medical Decision Making [facility] Narrative: The patient is a 38-year-old woman who was brought to the emergency room after she her own dogs which were fighting. She sustained a bite to her right index finger, apparently by the larger of the 2 dogs, a people. She has some partial-thickness skin injuries to the right index finger but no suturable lacerations. No signs of an underlying bony or tendon injury. The wounds were cleaned. She says she is up-to-date on tetanus. Still an allergy. She was given doxycycline and metronidazole for wound infection prophylaxis. The patient was brought to the emergency room under a section 12. Apparently she has been acting erratically at home and there have been multiple calls 911 because of her behaviors. She has been seemingly responding to internal stimuli and expressing paranoid thoughts. The patient has been seen in the emergency room 2 days prior. At that time she had presented believing that she had cysts on her legs and on her head. This did not seem to be the case. She had some mild LFT abnormalities. The patient apparently has a history of alcoholism. She says it has been at least a week or 2 since she has had any alcohol. She does not seem to be showing any definite signs of alcohol withdrawal at the moment. The patient had given a urine sample when she was in the emergency room 2 days prior. This has grown greater than [id number] gram negative rods. Speciation pending. The patient's finger was cleaned and dressed with bacitracin and a dressing. She was initially given doxycycline and metronidazole for wound infection prophylaxis for the dog bite. Later it was apparent that she had a positive urine culture and was having symptoms of a urinary tract infection. She was then given a dose of cefuroxime. We will continue cefuroxime and metronidazole to cover both her UTI and wound infection prophylaxis. I have ordered these medications. The patient has been seen by the care team. It was apparent that the patient was having paranoia and hallucinations. Recommendation was therefore to keep the patient in the emergency room for psychiatric placement. With regard to the rabies status of the dog that bit the patient the patient states that the dog has been appropriately vaccinated for rabies. Given her thought disordered his hard to know whether this is reliable information. Animal control, phone number [phone]. The patient is being quarantined for observation for 10 days out of concern for the question of rabies. The patient will be signed out at change of shift with the oncoming emergency physician. Lab Data 05/20/24 15:07 05/20/24 15:07 Labs: Lab Results 05/20/24 05/20/24 Range/Units 15:07 15:34 WBC 6.9 (4.8-10.8) X10*3/uL RBC 4.04 L (4.20-5.50) X10*6/uL Hgb 14.3 (12.0-16.0) g/dl Hct 40.2 (37.0-47.0) % MCV 99.5 H (80.0-98.0) fL MCH 35.4 H (27.0-33.0) pg MCHC 35.6 H (31.0-35.0) g/dl RDW 11.9 (11.0-16.0) % Plt Count 129 L D (160-400) X10*3/uL MPV 9.1 L (9.4-12.3) fL Immature Gran % (Auto) 0.3 (0.0-0.4) % Neut % (Auto) 70.3 (45-73) % Lymph % (Auto) 15.8 L (20-40) % [place] % (Auto) 12.3 H (2-11) % Eos % (Auto) 0.4 (0-4) % Baso % (Auto) 0.9 (0-2) % Lymph # (Auto) 1.1 L (1.2-4.9) X10*3/uL [place] # (Auto) 0.9 (0.1-1.2) X10*3/uL Eos # (Auto) 0.0 (0.0-0.4) X10*3/uL Baso # (Auto) 0.1 (0.0-0.2) X10*3/uL Abs Immat Gran (auto) 0.02 (0.00-0.03) X10*3/uL Absolute Neuts (auto) 4.9 (2.0-8.3) x10*3/uL Absolute Nucleated RBC 0.000 (0.0-0.012) X10*3/uL Nucleated RBC % (auto) 0.0 (0.0-0.2) /100WBC Sodium 141 (135-145) mmol/L Potassium 3.1 L (3.3-5.1) mmol/L Chloride 105 (96-108) mmol/L Carbon Dioxide 20 L (22-29) mmol/L Anion Gap 19 (12-20) BUN 16 (9-16) mg/dL Creatinine 0.68 (0.5-1.4) mg/dL Estim Creat Clear Calc 108.0 Estimated GFR > 60 Random Glucose 90 (60-115) mg/dL Calcium 9.4 (8.4-10.2) mg/dL Total Bilirubin 2.6 H (0.0-1.0) mg/dL Direct Bilirubin 0.9 H (0.0-0.5) mg/dL AST 99 H (5-31) U/L ALT 96 H (0-31) U/L Alkaline Phosphatase 64 (39-117) U/L Total Protein 7.9 (6.5-8.0) g/dL Albumin 4.5 (3.5-5.0) g/dL Beta HCG, Quant < 2 mIU/mL Urine Color Dark Yellow Urine Appearance Turbid Urine pH 6.0 (5.0-9.0) Ur Specific [place] >= 1.030 H (1.005-1.025) Urine Protein 100 (2+) H (Neg-Trace) mg/dL Urine Glucose (UA) Negative (Negative) mg/dL Urine Ketones 80 (Negative) mg/dL Urine Blood Large (3+) H (Negative) Urine Nitrite Positive H (Negative) Ur Leukocyte Esterase Moderate (2+) H (Negative) Urine RBC 3-5 H (0-2) /HPF Urine WBC 21-50 (0-5) /HPF Ur Squamous Epith Cells >20 (0-2) /HPF Urine Bacteria 4+ (None Seen) Hyaline Casts 3-5 (0-2) /LPF Urine Opiates Screen Not Detected (Not Detect) Ur Buprenorphine Scrn Not Detected (Not Detect) ng/mL Ur Oxycodone Screen Not Detected (Not Detect) ng/mL Urine Methadone Screen Not Detected (Not Detect) ng/mL Urine Fentanyl Screen Not Detected (Not Detect) Ur Barbiturates Screen Not Detected (Not Detect) Ur Phencyclidine Scrn Not Detected (Not Detect) Ur Amphetamines Screen Not Detected (Not Detect) U Benzodiazepines Scrn Not Detected (Not Detect) Urine Cocaine Screen Not Detected (Not Detect) U Marijuana (THC) Screen POSITIVE H (Not Detect) Ethyl Alcohol < 10 mg/dL Discharge Plan Discharge Clinical Impression: Thought disorder, Dog bite of finger, Urinary tract infection Patient Disposition: Still a Patient Prescriptions: No Action omeprazole 20 mg Capsule,Delayed Release(Dr/Ec) 20 mg PO DAILY@0630 Interventions: [place]-Suicide Risk Severity Scale Last Done: 05/20/24 15:37 Print Language: [place]an
[2024-05-20 14:16] VITALS: BP 100/58; PULSE 130; O2SAT 98
[2024-05-20 14:32] VITALS: BP 119/73; PULSE 109; RESP 16; TEMP 36.1; O2SAT 97; BMI 22.9
[2024-05-20] MEDS: metroNIDAZOLE 500 MG TABLET PO ×2 (14:59→21:31)
[2024-05-20] MEDS: Doxycycline Monohydrate 100 MG CAPSULE PO (14:59)
[2024-05-20 15:10] LABS: MANUAL DIFF FLAG NO
[2024-05-20 15:12] LABS: Basophils Absolute Auto 0.1 X10*3/uL (0.0-0.2); Basophils Percent Auto 0.9 % (0-2); Eosinophils Percent Auto 0.4 % (0-4); Hematocrit 40.2 % (37.0-47.0); Hemoglobin 14.3 g/dl (12.0-16.0); Imm Gran Abs Auto 0.02 X10*3/uL (0.00-0.03); Imm Gran Pct Auto 0.3 % (0.0-0.4); Lymphocytes Absolute Auto 1.1 X10*3/uL (1.2-4.9); Lymphocytes Percent Auto 15.8 % (20-40); Mean Corpuscular HGB Conc 35.6 g/dl (31.0-35.0); Mean Corpuscular Hemoglobin 35.4 pg (27.0-33.0); Mean Corpuscular Volume 99.5 fL (80.0-98.0); Mean Platelet Volume 9.1 fL (9.4-12.3); Monocytes Absolute Auto 0.9 X10*3/uL (0.1-1.2); Monocytes Percent Auto 12.3 % (2-11); Neutrophils Absolute Auto 4.9 x10*3/uL (2.0-8.3); Neutrophils Percent Auto 70.3 % (45-73); Platelet Count 129 X10*3/uL (160-400); Red Blood Count 4.04 X10*6/uL (4.20-5.50); Red Cell Distribution Width 11.9 % (11.0-16.0); White Blood Count 6.9 X10*3/uL (4.8-10.8)
[2024-05-20 15:34] LABS: Anion Gap 19 (12-20); Blood Urea Nitrogen 16 mg/dL (9-16); Calcium 9.4 mg/dL (8.4-10.2); Carbon Dioxide 20 mmol/L (22-29); Chloride 105 mmol/L (96-108); Estimated Glomerular Filt Rate > 60; Ethanol < 10 mg/dL; Glucose Random 90 mg/dL (60-115); Potassium 3.1 mmol/L (3.3-5.1); Sodium 141 mmol/L (135-145)
[2024-05-20 15:43] LABS: HCG Quantitative < 2 mIU/mL
--- NOTE | 2024-05-20 15:44 | PC.NURSE ---
patients last drink was 2 months ago
[2024-05-20 15:48] LABS: Appearance Urine Turbid; Color Urine Dark Yellow; Glucose Urine UA Negative (Negative); Leukocyte Esterase Urine Moderate (2+) (Negative); Nitrite Urine Positive (Negative); Specific Gravity - Urine >= 1.030 (1.005-1.025); UMIC TRIGGER UACC YES; Urine Blood Large (3+) (Negative); Urine Ketones 80 mg/dL (Negative); Urine Protein 100 (2+) mg/dL (Neg-Trace)
[2024-05-20 15:57] LABS: Amphetamine Screen Urine Not Detected (Not Detect); Barbiturates, Urine Not Detected (Not Detect); Benzodiazepines Screen Urine Not Detected (Not Detect); Buprenorphine Scr Not Detected (Not Detect); Cannabinoid Screen Urine POSITIVE (Not Detect); Cocaine Screen Urine Not Detected (Not Detect); Fentanyl, urine Not Detected (Not Detect); Methadone Screen, Urine Not Detected (Not Detect); Opiate Screen Urine Not Detected (Not Detect); Oxycodone Screen Urine Not Detected (Not Detect); Phencyclidine Screen Urine Not Detected (Not Detect)
[2024-05-20 16:06] LABS: Alanine Aminotransferase 96 U/L (0-31); Albumin Level 4.5 g/dL (3.5-5.0); Alkaline Phosphatase 64 U/L (39-117); Aspartate Amino Transferase 99 U/L (5-31); Bilirubin Direct 0.9 mg/dL (0.0-0.5); Bilirubin Total 2.6 mg/dL (0.0-1.0); Total Protein 7.9 g/dL (6.5-8.0)
[2024-05-20 16:09] LABS: Bacteria Urine 4+ (None Seen); Squamous Epithelial Cell Urine >20 /HPF (0-2); UACC Culture Trigger YES; WBC Urine 21-50 /HPF (0-5)
[2024-05-20] MEDS: Folic Acid 1 MG TABLET PO (16:21)
[2024-05-20] MEDS: Thiamine HCL 100 MG TABLET PO (16:21)
[2024-05-20] MEDS: cefuroxime axetiL 500 MG TABLET PO (16:21)
[2024-05-20] MEDS: OLANZapine ODT 10 MG TAB.RAPDIS TRANSLINGU (17:36)
--- NOTE | 2024-05-20 18:29 | PC.NURSE ---
Patient is having paranoia and auditory hallucinations; she thinks that her children are under the bed and can't breathe, constantly pacing and telling us to look under the bed. refused IM injections, Tor came into the POD and spoke to her, he does not feel that it is necessary to chemically restraint the patient at this time. reassurance given to her multiple times.
--- NOTE | 2024-05-21 01:00 | PC.NURSE ---
Assumed care of this Pt at 2300. Pt appears to be sleeping, equal non labored respirations, no apparent distress. Plan of care ongoing.
[2024-05-21 03:02] VITALS: RESP 16
--- NOTE | 2024-05-21 07:09 | PC.NURSE ---
Assumed care of patient at 0645, patient appears to be sleeping, respirations even and unlabored, no apparent distress noted. Continue plan of care for inpatient bedsearch
[2024-05-21] MEDS: Potassium Chloride ER 20 MEQ TAB.ER.PRT PO (08:51)
[2024-05-21] MEDS: Thiamine HCL 100 MG TABLET PO (08:51)
[2024-05-21] MEDS: Folic Acid 1 MG TABLET PO (08:51)
[2024-05-21] MEDS: cefuroxime axetiL 250 MG TABLET PO (08:51)
[2024-05-21] MEDS: metroNIDAZOLE 500 MG TABLET PO ×2 (08:51→16:48)
--- NOTE | 2024-05-21 11:13 | PC.NURSE ---
Patient is alert and oriented x4, calm and cooperative, not experiencing any hallucinations in any capacity. She reports she remembers everything she talked about in her hallucinations yesterday and states that when she smokes weed she becomes paranoid which is why she doesnt smoke weed. She is unsure of how marijuana got into her system. She is requesting to go home at this time. DO Re aware
[2024-05-21 14:31] LABS: MANUAL DIFF FLAG NO
[2024-05-21 14:43] LABS: Basophils Absolute Auto 0.1 X10*3/uL (0.0-0.2); Basophils Percent Auto 1.3 % (0-2); Eosinophils Absolute Auto 0.2 X10*3/uL (0.0-0.4); Hematocrit 43.2 % (37.0-47.0); Hemoglobin 15.3 g/dl (12.0-16.0); Imm Gran Abs Auto 0.01 X10*3/uL (0.00-0.03); Imm Gran Pct Auto 0.2 % (0.0-0.4); Lymphocytes Absolute Auto 1.7 X10*3/uL (1.2-4.9); Lymphocytes Percent Auto 29.5 % (20-40); Mean Corpuscular HGB Conc 35.4 g/dl (31.0-35.0); Mean Corpuscular Hemoglobin 36.3 pg (27.0-33.0); Mean Corpuscular Volume 102.4 fL (80.0-98.0); Mean Platelet Volume 9.2 fL (9.4-12.3); Monocytes Absolute Auto 0.6 X10*3/uL (0.1-1.2); Monocytes Percent Auto 10.9 % (2-11); Neutrophils Absolute Auto 3.1 x10*3/uL (2.0-8.3); Neutrophils Percent Auto 55.1 % (45-73); Platelet Count 176 X10*3/uL (160-400); Red Blood Count 4.22 X10*6/uL (4.20-5.50); Red Cell Distribution Width 11.9 % (11.0-16.0); White Blood Count 5.6 X10*3/uL (4.8-10.8)
[2024-05-21 14:44] LABS: Lactic Acid 1.4 mmol/L (0.5-2.0)
[2024-05-21 14:46] LABS: Anion Gap 15 (12-20); Blood Urea Nitrogen 16 mg/dL (9-16); C Reactive Protein 2.58 mg/dL (< or = 0.50); Calcium 9.9 mg/dL (8.4-10.2); Carbon Dioxide 25 mmol/L (22-29); Chloride 102 mmol/L (96-108); Creatinine Clr Calc Pharmacy 103.4; Estimated Glomerular Filt Rate > 60; Glucose Random 127 mg/dL (60-115); Potassium 3.1 mmol/L (3.3-5.1); Sodium 139 mmol/L (135-145)
[2024-05-21 16:30] VITALS: BP 101/77; PULSE 79; RESP 16; TEMP 36.8; O2SAT 99
[2024-05-21] MEDS: cefTRIAXone sodium 2 GM in 0.9 % Sodium Chloride 50 ML IV (16:48)
[2024-05-21] MEDS: Diphth,Pertus(ACell),Tet Adult 0.5 ML SYRINGE IM (17:21)
[2024-05-21] MEDS: Bacitracin Oint 0.9 GM PACKET 1 APPL TOPICAL (17:22)
[2024-05-21 18:01] VITALS: BP 130/60; PULSE 80; RESP 14; TEMP 36.8; O2SAT 98
--- NOTE | 2024-05-21 19:59 | MHC.CARE ---
RAD Team emailed a referral for CC for this pt. RAD Team will follow up for confirmation of receipt.
== END 2024-05-21 18:01 | disposition home or self-care (01) ==
PROVIDERS: Emergency Provider Emergency Medicine
DX: S61.250A Open bite of right index finger without damage to nail, initial encounter (principal); W54.0XXA Bitten by dog, initial encounter; Y93.89 Activity, other specified; Y92.9 Unspecified place or not applicable; Y99.9 Unspecified external cause status; L53.9 Erythematous condition, unspecified; R42 Dizziness and giddiness; F10.21 Alcohol dependence, in remission; Z65.3 Problems related to other legal circumstances; Z23 Encounter for immunization
CPT/HCPCS: 36415; 73140; 80048; 80076; 80307; 81001; 83605; 84702; 85025; 86140; 87040; 90471; 90715; 96374; 99285; J0696; S9485

== ENCOUNTER 2025-07-13 09:48 | Emergency (ER) | payer OTHER, SELFPAY ==
[2025-07-13 09:54] VITALS: BP 119/66; PULSE 104; O2SAT 100
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
[2025-07-13 10:09] VITALS: BP 118/79; PULSE 107; RESP 18; TEMP 36.4; O2SAT 99; BMI 26.5
[2025-07-13 10:57] VITALS: BP 118/79; PULSE 107; RESP 18; TEMP 36.4; O2SAT 99
== END 2025-07-13 10:59 | disposition home or self-care (01) ==
PROVIDERS: Emergency Provider Emergency Medicine Emergency Medical Services
DX: F10.129 Alcohol abuse with intoxication, unspecified (principal); Y90.9 Presence of alcohol in blood, level not specified; F17.210 Nicotine dependence, cigarettes, uncomplicated; Z79.899 Other long term (current) drug therapy
CPT/HCPCS: 99284

== ENCOUNTER 2025-09-10 15:00 | Emergency (ER) | payer OTHER, SELFPAY ==
[2025-09-10 15:12] VITALS: BP 138/80; PULSE 104; O2SAT 100; BMI 27.4
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
--- NOTE | 2025-09-10 15:27 | PC.NURSE ---
Pt arrives calm and cooperative. She is seen by the provider and deemed safe to be discharged home.
[2025-09-10 15:29] VITALS: BP 140/90; PULSE 100; RESP 16; TEMP 36.3; O2SAT 100
[2025-09-10 15:30] VITALS: BP 140/90; PULSE 100; RESP 16; TEMP 36.3; O2SAT 100
== END 2025-09-10 15:44 | disposition home or self-care (01) ==
LOC: HO.ED 15:43
PROVIDERS: Emergency Provider Emergency Medicine
DX: F41.9 Anxiety disorder, unspecified (principal); F32.A Depression, unspecified
CPT/HCPCS: 99281; 99283